=== PATIENT | female | born 1990 | race American Indian/Alaskan Native ===

== ENCOUNTER 2018-09-08 17:51 | Emergency (ER) | payer OTHER ==
[2018-09-08 18:00] VITALS: O2SAT 100
--- NOTE | 2018-09-08 18:02 | ED PDOC ---
Arrival/HPI - General Time Seen by Provider: 09/08/18 17:57 Historian: Patient - History of Present Illness Narrative History of Present Illness (Text): 09/08/18 17:59 28yo female with no pmhx who present with complaint of facial swelling and general pruritus. Patient states she started having these symptoms minutes after taking Keflex for the first time today. States she was just given the antibiotics by her PMD for cold symptoms. Denies rash, tongue swelling, SOB, chest pain, any other complaint. Past Medical History - Provider Review Nursing Documentation Reviewed: Yes Family/Social History - Physician Review Nursing Documentation Reviewed: Yes Family/Social History: Unknown Family HX Allergies/Home Meds Allergies/Adverse Reactions: Allergies cephalexin [From Keflex] Allergy (Verified 09/08/18 17:57) URTICARIA Review of Systems - Physician Review All systems were reviewed & negative as marked: Yes - Review of Systems Constitutional: Normal Eyes: Normal ENT: Normal Respiratory: Normal Cardiovascular: Normal Gastrointestinal: Normal Genitourinary Female: Normal Musculoskeletal: Normal Skin: Pruritis Neurological: Normal Endocrine: Normal Hemo/Lymphatic: Normal Psychiatric: Normal Physical Exam Vital Signs Reviewed: Yes Temperature: Afebrile Blood Pressure: Normal Pulse: Regular Respiratory Rate: Normal Appearance: Positive for: Well-Appearing, Non-Toxic, Comfortable Pain Distress: None Mental Status: Positive for: Alert and Oriented X 3 - Systems Exam Head: Present: Atraumatic, Normocephalic Pupils: Present: PERRL Extroacular Muscles: Present: EOMI (]), Other (Mild periorbital swelling) Conjunctiva: Present: Normal Mouth: Present: Moist Mucous Membranes, Normal Lips (Mild swollen lower lip). No: Drooling, Trismus Neck: Present: Normal Range of Motion Respiratory/Chest: Present: Clear to Auscultation, Good Air Exchange. No: Respiratory Distress, Accessory Muscle Use, Wheezes, Decreased Breath Sounds, Rales, Retracting, Rhonchi Cardiovascular: Present: Regular Rate and Rhythm, Normal S1, S2. No: Murmurs Abdomen: No: Tenderness, Distention, Peritoneal Signs Back: Present: Normal Inspection Upper Extremity: Present: Normal Inspection. No: Cyanosis, Edema Lower Extremity: Present: Normal Inspection. No: Edema Neurological: Present: GCS=15, CN II-XII Intact, Speech Normal Skin: Present: Warm, Dry, Normal Color. No: Rashes Psychiatric: Present: Alert, Oriented x 3, Normal Insight, Normal Concentration Medical Decision Making ED Course and Treatment: 09/08/18 18:29 Pt present to ED for stated history. she was hemodynamically stable in ED. No drooling. . No stridor in ED. Benadryl solu medrol Pepcid Reassess 09/08/18 19:02 Pt's swelling improved. she was not in any distress. She was advised to stop the abx. DC home with same medication and referred to a Roll Up Operator Disposition/Present on Arrival - Present on Arrival Any Indicators Present on Arrival: No History of DVT/PE: No History of Uncontrolled Diabetes: No Urinary Catheter: No History of Decub. Ulcer: No History Surgical Site Infection Following: None - Disposition Have Diagnosis and Disposition been Completed?: Yes Diagnosis: Allergic reaction Disposition: HOME/ ROUTINE Disposition Time: 19:05 Patient Plan: Discharge Patient Problems: Current Active Problems Problem Status Onset Allergic reaction Acute Condition: STABLE Discharge Instructions (ExitCare): Drug Allergy Additional Instructions: Stop taking antibiotics and follow up with your Doctor Follow up with metal weather stripper/Roll Up Operator Return to ED for any new or worsening symptoms Prescriptions: DiphenhydrAMINE [Benadryl] 25 mg PO Q6 #20 cap Famotidine [Pepcid] 20 mg PO DAILY #10 tab predniSONE [Prednisone] 20 mg PO BID #8 tab Referrals: Miriam Anders MD [Staff Provider] - Follow up with primary
[2018-09-08] MEDS ORDERED: DiphenhydrAMINE 50 mg/ml Inj IVP STA (18:03)
[2018-09-08 19:07] VITALS: BP 110/74; PULSE 67; RESP 16; TEMP 98
== END 2018-09-08 19:08 | disposition home or self-care (01) ==
LOC: ED 17:51 → MERGE 17:51 → ED 19:08
DX: T78.49XA Other allergy, initial encounter (principal); X58.XXXA Exposure to other specified factors, initial encounter
CPT/HCPCS: 96374; 96375; 99283; J1200; J2930